=== PATIENT | male | born 1975 | race Caucasian/White ===

== ENCOUNTER 2017-04-06 13:11 | Emergency (ER) | payer MEDICAID, OTHER ==
[~2017-04-06] VITALS: Wt 84.1 kg
[~2017-04-06 13:11] MED LIST: CYCL-319 PO; IBUP800T25 PO
--- NOTE | 2017-04-06 13:39 | ERD ---
ER Documentation Chief Complaint Date/Time DATE: 04/06/17 TIME: 13:38 Chief Complaint cough w blood HPI 42-year-old male presents emergency department for productive cough for 3 days. He also added that last night he saw a streak of blood from his phlegm. Also added that he felt like he had a fever last night but never took his temperature. Denies headache, loss of consciousness, dizziness, blurry vision, changes in vision, photophobia, facial pain, ear pain, throat pain, difficulty swallowing, neck pain, shoulder pain, chest pain, hemoptysis, abdominal pain, back pain, loss of appetite, nausea, vomiting, hematochezia, diarrhea, constipation, urinary symptoms, bladder and bowel incontinences, extremity weakness, extremity tenderness, numbness or tingling sensation, difficulty walking, recent travel, recent exposure to illness, recent antibiotic use in the last 3 months, fever, chills. Allergy: No known drug allergies. PMH: Denies. Medications: Denies. Surgery: Left eye surgery. Family history: Denies family history of cardiac before the age of 50, pulmonary disease, hypertension, stroke. 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 Denies smoking, use of alcohol, use of illegal drugs. ROS All systems reviewed and are negative except as per history of present illness. Medications Home Meds Active Scripts Albuterol Sulfate* (Proair HFA*) 8.5 Gm Hfa.aer.ad, 2 PUFF INH Q4, #1 INHALER Prov:CARISA BENITEZ F 04/06/17 Acetaminophen* (Tylophen*) 500 Mg Capsule, 1 CAP PO Q6H Y for PAIN AND OR ELEVATED TEMP, #20 CAP Prov:CARISA BENITEZ F 04/06/17 Azithromycin* (Zithromax*) 250 Mg Tablet, 250 MG PO .ZPACK DIRECTED, #6 TAB TAKE 500 MG (2 TABS) THE FIRST DAY THEN 250 MG (1 TAB) DAYS 2-5 Prov:CARISA BENITEZ F 04/06/17 Cyclobenzaprine Hcl* (Cyclobenzaprine Hcl*) 10 Mg Tablet, 10 MG PO TID, #20 TAB Prov:BRIANNA KUMARI PA-C 07/12/15 Ibuprofen* (Ibuprofen*) 800 Mg Tab, 800 MG PO Q6H Y for PAIN, #30 TAB Prov:BRIANNA KUMARI Heriberto WHITAKER 07/12/15 Allergies Allergies: Coded Allergies: No Known Allergy (Unverified , 07/12/15) PMhx/Soc Hx Alcohol Use: No Hx Substance Use: No Hx Tobacco Use: No Physical Exam Vitals Vital Signs Date Time Temp Pulse Resp B/P Pulse Ox O2 Delivery O2 Flow Rate FiO2 04/06/17 15:57 98.2 78 20 135/82 98 Room Air 04/06/17 13:17 97.5 78 20 137/69 97 Physical Exam CONSTITUTIONAL: Well-appearing; well-nourished; in no apparent distress. HEAD: Normocephalic; atraumatic. EYES: Conjunctiva clear, sclera non-icteric, EOM intact. PERRL Ears: Hearing intact. EACs clear, TMs non-bulging, non-inflamed, translucent & mobile, ossicles normal appearance, No obstructions, no erythema, no discharges Nose: Mild congestion. No obstructions. No polyps. No external lesions. Mucosa non-inflamed. No external lesions, septum and turbinates normal. No discharges. Frontal sinus is non-tender to palpation. Maxillary sinus is non-tender to palpation. MOUTH: Moist mucous membranes, no lesion, no obstructions, no vesicles, no thrush, patent airway Throat: Uvula in midline. Right tonsil is +1 with no erythema, no exudate. Left tonsil is +1 with no erythema, no exudate. Tolerating secretions well. Good gag reflex. Patent airway. Neck: Supple, without lesions, bruits, or adenopathy. No mass. Thyroid non- enlarged and non-tender to palpation. CHEST: Symmetrical chest. Respirations even and not labored. No retractions noted. CARDIOVASCULAR: Normal S1, S2. RRR. No murmurs, gallops. RESPIRATORY: Normal chest excursion with respiration; breath sounds clear and equal bilaterally; no wheezes, rhonchi, or rales. Breathing even and unlabored. Speaking in clear, full, and complete sentences w/ ease. ABDOMEN: Normal bowel sounds normal. Soft, round, non-distended, non-guarding, no tenderness, no rebound, no organomegaly, no masses, no pulsating abdominal mass. No hernia. No peritoneal signs. : No CVA tenderness. BACK: Symmetrical shoulder. Spine is midline without deformity, tenderness. No evidence of trauma or deformity. PELVIS: Stable pelvis. No evidence of trauma or deformity. MUSCULOSKELETAL: Normal gait and station. No misalignment, asymmetry, crepitation, defects, tenderness, masses, effusions, decreased range of motion, instability, atrophy or abnormal strength or tone in the head, neck, spine, ribs , pelvis or extremities. No calf tenderness. NEUROVASCULAR: Distal pulses are present. Pedal pulse are present, equal, and normal. Capillary refills are < 2 seconds. NEUROLOGIC: Alert and oriented x4. Speaks full and clear sentences. Cranial Nerves II-XII normal. Sensation to pain, touch, and proprioception normal. Grossly unremarkable. No neurologic deficits. Romberg test is negative. PSYCHOLOGICAL: The patients mood and manner are appropriate. No hallucinations , delusions. Not SI. Not HI. Has the capacity to decide for self SKIN: Normal for age and ethnicity; warm; dry; good turgor; no apparent lesions or exudates. No rashes, hives, discoloration. Intact. Procedures/MDM Examination: Please see physical examination. Disease process, medical treatment was explained to the patient and family member. They verbalized understanding and agreed with the diagnostic tests, medical treatment, and follow-up care. Radiology: Chest x-ray Impression: No acute cardiopulmonary disease. Treatment: None. Re-evaluation: Denies headache, dizziness, blurry vision, neck pain, shoulder pain, chest pain, back pain, abdominal pain. There is no episode of emesis here in the emergency department. Respirations even and unlabored. Lung sounds are clear to auscultation. There is no right upper/right lower/ epigastric/left upper/left lower abdominal tenderness and light and deep palpation. There is no CVA tenderness. Negative on Rovsing's sign. Negative [place] sign. No peritoneal signs. Normal. No signs of dehydration. No neurovascular deficits. No neurological deficits. Stated that he feels much better at this time and wants to go home. Consultation: None. Differential diagnosis: Tuberculosis versus pneumonia versus bronchitis versus upper respiratory infection Medical decision makin-year-old male presents emergency department for productive cough for 3 days. He also added that last night he saw a streak of blood from his phlegm. Also added that he felt like he had a fever last night but never took his temperature.. Patient's complaint, patient's history about his complaint, my physical findings, my diagnostic test results, my reevaluation are consistent with final diagnosis of acute bronchitis. Medications prescribed are the following: Azithromycin. Pro-air. Tylenol. Patient and family member are made aware of the side effects and adverse reactions of the medications prescribed. Instructed on when to seek emergent and medical attention in case allergic/anaphylactic reactions or severe side effects and or adverse reactions to medications. Patient and family member verbalized understanding. Patient instructed to: Instructed to follow-up with his PCP in 24-48 hours. Instructed to Call 911 for chest pain, shortness of breath. Advised to come back here in ED as soon as possible for severity of symptoms which includes but not limited to: any new symptoms; shortness of breath/difficulty of breathing; cardiovascular changes; severe gastrointestinal symptoms; signs and symptoms of bleeding and or infection; signs of compartment syndrome/neurovascular changes; neurological changes/deficits. Patient and family member verbalized understanding. Upon discharge, patient is alert and oriented x 4, speaks full and clear sentences, denies pain, has no neurological deficits, has no neurovascular deficits, difficulty of breathing. Breathing even and unlabored. Lung sounds are clear to auscultation. Not in distress. Appears comfortable. Ambulatory with steady gait. Appears satisfied with care provided here in ED. Departure Diagnosis: Primary Impression: Cough Additional Impression: Bronchitis Condition: Good Additional Instructions: Patient instructed to: Instructed to follow-up with his PCP in 24-48 hours. Instructed to Call 911 for chest pain, shortness of breath. Advised to come back here in ED as soon as possible for severity of symptoms which includes but not limited to: any new symptoms; shortness of breath/difficulty of breathing; cardiovascular changes; severe gastrointestinal symptoms; signs and symptoms of bleeding and or infection; signs of compartment syndrome/neurovascular changes; neurological changes/deficits. Patient and family member verbalized understanding. CARISA BENITEZ Apr 06, 2017 13:39
--- NOTE | 2017-04-06 15:05 | RADRPT ---
PROCEDURE: XR Chest. CLINICAL INDICATION: Cough . TECHNIQUE: PA and lateral chest x-ray. COMPARISON: None. FINDINGS: The lungs are clear. The cardiomediastinal silhouette is unremarkable. The osseous structures are u nremarkable. IMPRESSION: 1. No acute cardiopulmonary disease. RPTAT: QQ .Dutch Johnson MD, MD Date Time Electronically viewed and signed by .Dutch Johnson MD, MD on 04/06/2017 15:04 .L/
[2017-04-06] MEDS ORDERED: AZIT250T94 PO (15:42)
[2017-04-06] MEDS ORDERED: ALBU8.5H3 INH (15:44)
[2017-04-06] MEDS ORDERED: ACET500C5 PO (15:44)
[2017-04-06 15:57] VITALS: BP 135/82; PULSE 78; RESP 20; TEMP 98.2
== END 2017-04-06 15:58 | disposition home or self-care (01) ==
LOC: FTE 13:11
DX: R05 Cough (principal); J20.9 Acute bronchitis, unspecified
CPT/HCPCS: 71020; Z7502

== ENCOUNTER 2018-09-29 05:14 | Emergency (ER) | END 2018-09-29 06:45 | disposition home or self-care (01) ==

== ENCOUNTER 2019-02-02 16:26 | Emergency (ER) | payer MEDICAID ==
[~2019-02-02] VITALS: Ht 162.6 cm; Wt 81.5 kg
[~2019-02-02 16:26] MED LIST changes: +ACET500C5 PO; +ALBU8.5H8 INH; +AZIT250T PO; -CYCL-319 PO; +CYCL10TA7 PO; +FLUT9.9S NASAL; +IBUP-1542 PO; +IBUP-1545 PO; -IBUP800T25 PO; +ORA20G7 BUCCAL; +SODI126M NASAL
[2019-02-02 16:30] VITALS: Ht 162.6 cm; Wt 81.5 kg
[2019-02-02] MEDS ORDERED: SODIUM CHLORIDE 0.9% 1L BAG IV* STA (17:16)
[2019-02-02] MEDS ORDERED: ALBUTEROL 0.083% (NEB) 2.5 MG/3 ML AMP HHN STA (17:20)
[2019-02-02] MEDS ORDERED: CEFTRIAXONE 1 GM/50 ML (PMX) 50 ML IVPB ONE (17:30)
[2019-02-02] MEDS ORDERED: IBUPROFEN 600 MG TAB PO ONE (17:30)
[2019-02-02] MEDS ORDERED: ALBU8.5H8 INH (19:27)
[2019-02-02] MEDS ORDERED: IBUP-1542 PO (19:27)
[2019-02-02 19:43] VITALS: BP 123/83; PULSE 103; RESP 20
--- NOTE | 2019-02-02 23:42 | ERD ---
ER Documentation Chief Complaint Chief Complaint COUGH AND CONGESTION X3 WEEKS HPI 43-year-old man complaining of cough and congestion times 3 weeks he also states he has had a fever times a few days. Denies abdominal pain, no vomiting or diarrhea, no chest pain or shortness of breath. Patient has a questionable history of asthma. Patient denies rash and denies calf or leg swelling. Patient has had no recent travel and denies recent antibiotic use. ROS All systems reviewed and are negative except as per history of present illness. Medications Home Meds Active Scripts Ibuprofen* (Motrin*) 600 Mg Tab, 600 MG PO Q8 PRN for PAIN AND/OR INFLAMMATION, #30 TAB Prov:CLEVE ROA MD 02/02/19 Albuterol Sulfate* (Proair HFA*) 8.5 Gm Hfa.aer.ad, 2 PUFF INH Q6H PRN for WHEEZING AND SOB, #1 INHALER Prov:CLEVE RAO MD 02/02/19 Discontinued Scripts Benzocaine* (Orajel Maximum*) 1 Applic Gel, 1 APPLIC BUCCAL Q6 PRN for mouth sore, #1 TUB Prov:SULAIMAN BURROUGHS NP 09/29/18 Fluticasone Propionate (Flonase Allergy Relief) 9.9 Ml [place].susp, 1 SPRAY NASAL DAILY, #1 BOTTLE TO EACH NOSTRIL Prov:SULAIMAN BURROUGHS NP 09/29/18 Sodium Chloride (Saline Nasal Mist) 126 Ml Mist, 2 SPRAY NASAL Q2H PRN for NASAL CONGESTION, #1 BOTTLE Prov:SULAIMAN BURROUGHS NP 09/29/18 Ibuprofen* (Motrin*) 600 Mg Tab, 600 MG PO Q6H PRN for PAIN AND OR ELEVATED TEMP, #30 TAB Prov:USLAIMAN BURROUGHS NP 09/29/18 Albuterol Sulfate* (Proair HFA*) 8.5 Gm Hfa.aer.ad, 2 PUFF INH Q4, #1 INHALER Prov:PASILABANOSCARAR F 04/06/17 Acetaminophen* (Tylophen*) 500 Mg Capsule, 1 CAP PO Q6H PRN for PAIN AND OR ELEVATED TEMP, #20 CAP Prov:PASILABANOSCARAR F 04/06/17 Azithromycin* (Zithromax*) 250 Mg Tablet, 250 MG PO .ZPACK DIRECTED, #6 TAB TAKE 500 MG (2 TABS) THE FIRST DAY THEN 250 MG (1 TAB) DAYS 2-5 Prov:CARISA BENITEZ 04/06/17 Cyclobenzaprine Hcl* (Cyclobenzaprine Hcl*) 10 Mg Tablet, 10 MG PO TID, #20 TAB Prov:BRIANNA KUMARI PA-C 07/12/15 Ibuprofen* (Ibuprofen*) 800 Mg Tab, 800 MG PO Q6H PRN for PAIN, #30 TAB Prov:BRIANNA KUMARI PA-C 07/12/15 Allergies Allergies: Coded Allergies: No Known Allergy (Unverified , 02/02/19) PMhx/Soc Asthma Medical and Surgical Hx: pt denies Medical Hx, pt denies Surgical Hx Hx Alcohol Use: No Hx Substance Use: No Hx Tobacco Use: No Smoking Status: Never smoker FmHx Family History: No diabetes Physical Exam Vitals Vital Signs Date Temp Pulse Resp B/P (MAP) Pulse Ox O2 O2 Flow FiO2 Time Delivery Rate 02/02/19 103 20 123/83 96 Room Air 10.0 19:43 (96) 02/02/19 116 30 162/76 99 Mask 10.0 18:24 (104) 02/02/19 102 22 96 21 17:30 02/02/19 Nasal 2 17:30 Cannula 02/02/19 101.5 17:29 02/02/19 101.6 102 22 134/78 96 16:30 (96) Physical Exam GENERAL: Well-developed, well-nourished man, dyspneic, febrile HEENT: Moist mucous membranes, pink conjunctiva, no cervical spine tenderness or step-off deformities, no goiter, no jaundice or icterus, extraocular movements intact without pain. No submandibular induration, and no pharyngeal erythema NEURO: Alert and oriented 3, cranial nerves II through XII intact bilaterally, pupils equal round reactive to light, no focal deficits or facial asymmetry, sensation intact distally Strength 5/5 in upper and lower extremities bilaterally CARDIAC: Tachycardic and regular, no murmurs rubs or gallops LUNGS: Scattered wheezes bilaterally, no crackles or stridor ABDOMEN: Soft nontender, no guarding, no rigidity, no rebound, no psoas sign no obturator sign. SKIN: Warm and dry to touch, no abrasions, contusions, or hematomas, no lacerations, no ecchymosis, no target lesions, and without ulcers EXTREMITIES: No clubbing cyanosis or edema, calves are bilaterally symmetrical, no Hom[place] sign, no popliteal cord sign. Distal pulses equal and bilateral PSYCH: Normal affect without agitation or irritability Result Diagram: 02/02/19 1722 02/02/19 1722 Results 24 hrs Laboratory Tests Test 02/02/19 17:22 02/02/19 17:33 White Blood Count 13.1 10^3/ul Red Blood Count 5.50 10^6/ul Hemoglobin 16.1 g/dl Hematocrit 47.7 % Mean Corpuscular Volume 86.7 fl Mean Corpuscular Hemoglobin 29.3 pg Mean Corpuscular Hemoglobin Concent 33.8 g/dl Red Cell Distribution Width 12.4 % Platelet Count 267 10^3/UL Mean Platelet Volume 9.6 fl Immature Granulocytes % 0.200 % Neutrophils % 79.6 % Lymphocytes % 11.1 % Monocytes % 7.6 % Eosinophils % 1.3 % Basophils % 0.2 % Nucleated Red Blood Cells % 0.0 /100WBC Immature Granulocytes # 0.030 10^3/ul Neutrophils # 10.4 10^3/ul Lymphocytes # 1.5 10^3/ul Monocytes # 1.0 10^3/ul Eosinophils # 0.2 10^3/ul Basophils # 0.0 10^3/ul Nucleated Red Blood Cells # 0.0 10^3/ul Prothrombin Time 13.0 Sec Prothrombin Time Ratio 1.0 INR International Normalized Ratio 0.97 Activated Partial Thromboplast Time 32.0 Sec Sodium Level 141 mmol/L Potassium Level 3.9 mmol/L Chloride Level 104 mmol/L Carbon Dioxide Level 25 mmol/L Anion Gap 12 Blood Urea Nitrogen 13 mg/dl Creatinine 0.92 mg/dl Est Glomerular Filtrat Rate mL/min > 60 mL/min Glucose Level 112 mg/dl Lactic Acid Level 1.5 mmol/L Calcium Level 9.7 mg/dl Total Bilirubin 0.3 mg/dl Direct Bilirubin 0.00 mg/dl Indirect Bilirubin 0.3 mg/dl Aspartate Amino Transf (AST/SGOT) 34 IU/L Alanine Aminotransferase (ALT/SGPT) 37 IU/L Alkaline Phosphatase 85 IU/L Troponin I < 0.012 ng/ml Total Protein 8.0 g/dl Albumin 4.5 g/dl Globulin 3.50 g/dl Albumin/Globulin Ratio 1.28 Lipase 77 U/L Urine Color YELLOW Urine Clarity CLEAR Urine pH 5.0 Urine Specific [place] 1.021 Urine Ketones NEGATIVE mg/dL Urine Nitrite NEGATIVE mg/dL Urine Bilirubin NEGATIVE mg/dL Urine Urobilinogen 1+ mg/dL Urine Leukocyte Esterase NEGATIVE [place]/ul Urine Microscopic RBC 3 /HPF Urine Microscopic WBC 0 /HPF Urine Hemoglobin 2+ mg/dL Urine Glucose NEGATIVE mg/dL Urine Total Protein NEGATIVE mg/dl Current Medications Medications Dose Sig/Lito Start Time Status Last (Trade) Ordered Route PRN Stop Time Admin Dose Reason Admin Sodium 2,450 ml BOLUS OVER 2 02/02/19 DC 02/02/19 Chloride HOURS STAT 17:16 02/02/19 17:29 (NS) IV* 17:18 Ibuprofen 600 mg ONCE ONCE 02/02/19 DC 02/02/19 (Motrin) PO 17:30 02/02/19 17:29 17:31 Albuterol 10 mg ONCE STAT 02/02/19 DC 02/02/19 (Proventil HHN 17:20 02/02/19 17:28 0.083% (Neb)) 17:22 Ceftriaxone 50 ml @ ONCE ONCE 02/02/19 DC 02/02/19 Sodium 100 mls/hr IVPB 17:30 02/02/19 17:30 17:59 Procedures/MDM IV line was established patient was placed on child monitor rhythm strip revealed a sinus tachycardia at 110 bpm with upright P and T waves. Patient was febrile, blood and urine cultures have been ordered results are pending I will follow-up I administered over 2 L normal saline IV, ibuprofen 600 mg p.o., albuterol 10 mg via nebulizer, and ceftriaxone 1 g IV. Patient also received albuterol 10 mg via nebulizer for wheezing. One AP view of the chest performed, read by me reveals no acute infiltrates, normal mediastinum, sharp costophrenic and cardiac borders, no air under the diaphragm. Otherwise unremarkable chest x-ray. Influenza AB swabs were negative CBC and electrolytes were normal, liver function tests were normal, troponin negative, lactic acid was low and I do not suspect sepsis. Urinalysis was negative for infection. Patient defervesced tachycardia resolved, he feels much better and looks well he will be discharged with instructions to follow-up with PMD and return instructions. Differential diagnoses considered, included but not limited to acute coronary syndrome, pulmonary embolism, aortic dissection, abdominal aortic aneurysm, sepsis, stroke, meningitis, encephalitis, pneumonia, appendicitis, cholecystitis, bowel obstruction, pyelonephritis, nephrolithiasis, cystitis, as well as metabolic, hematologic, and electrolyte abnormalities. As well as abscess, cellulitis, fractures, and dislocations. Patient feels much better at this time, and vital signs are normal, symptoms hav e improved. I did give strict instructions to return to the ED if symptoms continue or worsen, patient will otherwise follow-up with primary care physician. Patient understood instructions and agreed to plan. Disclaimer: Inadvertent spelling and grammatical errors are likely due to EHR/dictation software use and do not reflect on the overall quality of patient care. Also, please note that the electronic time recorded on this note does not necessarily reflect the actual time of the patient encounter. Departure Diagnosis: Primary Impression: Acute URI Ruled Out: Cough Condition: Good Patient Instructions: Uri, Viral W/ Wheezing (Adult) CLEVE ROA MD Feb 02, 2019 23:42
== END 2019-02-02 19:45 | disposition home or self-care (01) ==
LOC: E/R 16:26
DX: J06.9 Acute upper respiratory infection, unspecified (principal); R40.2142 Coma scale, eyes open, spontaneous, at arrival to emergency department; R40.2362 Coma scale, best motor response, obeys commands, at arrival to emergency department; R07.9 Chest pain, unspecified; R50.9 Fever, unspecified
CPT/HCPCS: 71045; 80053; 81001; 83605; 83690; 84484; 85025; 85610; 85730; 87040; 87086; 87400; 94644; 96374; J0696; J7030; Z7502; Z7610

== ENCOUNTER 2019-03-28 07:52 | Emergency (ER) | payer MEDICAID ==
[~2019-03-28] VITALS: Ht 170.2 cm; Wt 79.7 kg
[~2019-03-28 07:52] MED LIST changes: -ACET500C5 PO; -AZIT250T PO; -CYCL10TA7 PO; -FLUT9.9S NASAL; -IBUP-1545 PO; -ORA20G7 BUCCAL; -SODI126M NASAL
[2019-03-28 07:55] VITALS: Ht 170.2 cm; Wt 79.7 kg
[2019-03-28] MEDS ORDERED: morphine 4 MG/ML VIAL IV STA (09:15)
[2019-03-28] MEDS ORDERED: SOD CHLORIDE 0.9% 1,000 ML IV STA (09:15)
[2019-03-28] MEDS ORDERED: KETOROLAC 30 MG INJ IV STA (09:15)
[2019-03-28] MEDS ORDERED: ONDANSETRON 4 MG INJ IV STA (09:15)
[2019-03-28] MEDS ORDERED: DICYCLOMINE 10 MG CAP PO ONE (09:30)
[2019-03-28] MEDS ORDERED: IBUP800T48 PO (11:05)
[2019-03-28 11:18] VITALS: BP 122/70; PULSE 71; RESP 16
--- NOTE | 2019-03-28 11:28 | ERD ---
ER Documentation Chief Complaint Chief Complaint ABD PAIN WITH FEVER , DIARRHEA X 3 DAYS HPI This is a very pleasant 44-year-old male with no past medical history that presents to the emergency department complaining of abdominal cramping that is been intermittent for the past 3 days. He states he had been with his granddaughter who recently was diagnosed with a viral illness. She had been experiencing vomiting and diarrhea. The patient indicated he describes his abdominal pain is a cramping-like sensation. His diarrhea has improved. He has felt nauseous and did have one episode of nonbloody nonbilious emesis at the onset of his symptoms. The cramping is still persisted and is worse prior to stooling. He denied any hemoptysis hematemesis or melanotic stools. No recent travel or hospitalizations. He has not recently been on antibiotics. He denies any past surgical history. ROS All systems reviewed and are negative except as per history of present illness. Medications Home Meds Active Scripts Ibuprofen* (Motrin*) 800 Mg Tab, 800 MG PO Q6H PRN for PAIN AND OR ELEVATED TEMP, #30 TAB Prov:JOHN GRESHAM MD 03/28/19 Ibuprofen* (Motrin*) 600 Mg Tab, 600 MG PO Q8 PRN for PAIN AND/OR INFLAMMATION, #30 TAB Prov:CLEVE ROA MD 02/02/19 Albuterol Sulfate* (Proair HFA*) 8.5 Gm Hfa.aer.ad, 2 PUFF INH Q6H PRN for WHEEZING AND SOB, #1 INHALER Prov:CLEVE ROA MD 02/02/19 Allergies Allergies: Coded Allergies: No Known Allergy (Unverified , 03/28/19) PMhx/Soc Medical and Surgical Hx: pt denies Medical Hx, pt denies Surgical Hx Hx Alcohol Use: No Hx Substance Use: No Hx Tobacco Use: No Smoking Status: Never smoker Physical Exam Vitals Vital Signs Date Temp Pulse Resp B/P (MAP) Pulse Ox O2 O2 Flow FiO2 Time Delivery Rate 03/28/19 97.5 71 16 122/70 99 11:18 (87) 03/28/19 96.9 72 18 124/69 97 Room Air 08:58 (87) 03/28/19 96.9 69 18 124/69 97 07:55 (87) Physical Exam Constitutional:Well-developed. Well-nourished. HEENT:Normocephalic. Atraumatic.Pupils were equal round reactive to light. Moist mucous membranes.No tonsillar exudates. Neck: No nuchal rigidity. No lymphadenopathy. No posterior cervical spine tenderness or step-offs. Respiratory: Not using accessory muscles of respiration.Lungs were clear to auscultation bilaterally. No rhonchi. No rales. No wheezing. Cardiovascular: Regular rate regular rhythm.No murmurs. No rubs were appreciated.S1, S2 normal. Distal pulses are palpable 2+ bilaterally. GI: Abdomen was soft. Mild epigastric tenderness. Non Distended. No pulsatile abdominal masses or bruits. No rebound. No guarding. Bowel sounds were hyper active. Muscle skeletal: Full range of motion of both the upper and lower extremities bilaterally.Normal muscle tone.No assymetrical calf tenderness or swelling. Skin: No petechia, no purpura. No lesions on the palms or the soles of the feet. No maculopapular rash. NEURO: Patient was alert, awake, orientated x3.No facial droop. Gait observed and normal with no ataxia.Speech had regular rate and rhythm. No focal neurological deficits. Result Diagram: 03/28/1932 03/28/1932 Results 24 hrs Laboratory Tests Test 03/28/19 09:32 White Blood Count 7.3 10^3/ul Red Blood Count 5.24 10^6/ul Hemoglobin 15.5 g/dl Hematocrit 47.0 % Mean Corpuscular Volume 89.7 fl Mean Corpuscular Hemoglobin 29.6 pg Mean Corpuscular Hemoglobin Concent 33.0 g/dl Red Cell Distribution Width 12.8 % Platelet Count 235 10^3/UL Mean Platelet Volume 9.5 fl Immature Granulocytes % 0.100 % Neutrophils % 57.9 % Lymphocytes % 26.2 % Monocytes % 11.9 % Eosinophils % 3.5 % Basophils % 0.4 % Nucleated Red Blood Cells % 0.0 /100WBC Immature Granulocytes # 0.010 10^3/ul Neutrophils # 4.2 10^3/ul Lymphocytes # 1.9 10^3/ul Monocytes # 0.9 10^3/ul Eosinophils # 0.3 10^3/ul Basophils # 0.0 10^3/ul Nucleated Red Blood Cells # 0.0 10^3/ul Prothrombin Time 12.9 Sec Prothrombin Time Ratio 1.0 INR International Normalized Ratio 0.96 Activated Partial Thromboplast Time 32.2 Sec Sodium Level 143 mmol/L Potassium Level 4.5 mmol/L Chloride Level 108 mmol/L Carbon Dioxide Level 28 mmol/L Anion Gap 7 Blood Urea Nitrogen 10 mg/dl Creatinine 0.85 mg/dl Est Glomerular Filtrat Rate mL/min > 60 mL/min Glucose Level 89 mg/dl Calcium Level 8.9 mg/dl Total Bilirubin 0.4 mg/dl Direct Bilirubin 0.00 mg/dl Indirect Bilirubin 0.4 mg/dl Aspartate Amino Transf (AST/SGOT) 29 IU/L Alanine Aminotransferase (ALT/SGPT) 37 IU/L Alkaline Phosphatase 72 IU/L Troponin I < 0.012 ng/ml Total Protein 7.3 g/dl Albumin 3.9 g/dl Globulin 3.40 g/dl Albumin/Globulin Ratio 1.14 Amylase Level 72 U/L Lipase 43 U/L Current Medications Medications Dose Sig/Lito Start Time Status Last (Trade) Ordered Route PRN Stop Time Admin Dose Reason Admin Sodium 1,000 ml @ Q1H STAT 03/28/19 DC 03/28/19 Chloride 1,000 mls/hr IV 09:15 09:24 03/28/19 10:14 Morphine 4 mg ONCE STAT 03/28/19 DC 03/28/19 Sulfate IV 09:15 09:26 (morphine) 03/28/19 09:16 Ondansetron 4 mg ONCE STAT 03/28/19 DC 03/28/19 HCl (Zofran IV 09:15 09:25 Inj) 03/28/19 09:16 Ketorolac 30 mg ONCE STAT 03/28/19 DC 03/28/19 Tromethamine IV 09:15 09:26 (Toradol) 03/28/19 09:16 Dicyclomine 20 mg ONCE ONCE 03/28/19 DC 03/28/19 HCl PO 09:30 09:26 (Bentyl) 03/28/19 09:31 Procedures/MDM This is a 44-year-old male who presented to the emergency department with nausea vomiting diarrhea. Patient was placed on a engine monitor continuous pulse oximetry and IV access was established by nursing staff. The patient no severe electrolyte abnormalities. The patient had no leukocytosis. I obtained a 12- lead EKG tracing to rule out for atypical myocardial infarction. 12 Lead EKG tr acing ordered and reviewed by myself showed: Sinus bradycardia of 53 bpm and no arrhythmia. PA interval normal. QRS duration normal. No ST segment elevation No ST segment depression. No changes consistent with acute ischemia. I obtained a KUB radiograph reviewed by myself the radiologist that demonstrated nonobstructive bowel gas pattern. I indicated the patient felt the symptoms are likely result of a viral etiology. The patient had no peritoneal signs at this time to suggest perforated viscus or appendicitis. The patient was given IV fluids morphine Toradol and Bentyl. Observation Note: Time: 4 hours Family Hx: No Hypertension Evaluation: Multiple exams showed improving symptoms and no evidence of peritoneal signs or persistent dehydration. The patient was discharged home in fair condition. They were instructed to return to the emergency department at any time if there was any worsening of their condition. The patient stated they would follow up with their PCP in the next 24-48 hours to initiate a suitable medication regimen under the care of their PCP as well as to allow their PCP to monitor any drug reactions. The patient was discharged home with prescriptions after they gave informed consent to the new medication. They were also fully informed by myself on the adverse effects and adverse drug interactions in order to provide adequate safeguards to prevent possible adverse reactions to medications. Departure Diagnosis: Primary Impression: Diarrhea Diarrhea type: unspecified type Qualified Codes: R19.7 - Diarrhea, unspecified Additional Impression: Nausea vomiting and diarrhea Condition: Fair Patient Instructions: Diarrhea, Viral (Child) (Adult) JOHN GRESHAM MD March 28, 2019 11:28
== END 2019-03-28 11:21 | disposition home or self-care (01) ==
LOC: E/R 07:52
DX: R11.2 Nausea with vomiting, unspecified (principal); R19.7 Diarrhea, unspecified
CPT/HCPCS: 74018; 80053; 82150; 83690; 84484; 85025; 85610; 85730; J1885; J2270; J2405; J7030; Z7610; 36415; 93005; 96361; 96374; 96375